=== PATIENT | male | born 1925 | race Caucasian/White ===

== ENCOUNTER → 2016-08-18 | Day surgery (SDC) | payer MEDICARE, OTHER ==
[~2016-08-18] VITALS: Ht 175.3 cm; Wt 66.8 kg
[2016-08-18] VITALS (9 sets, daily range): BP systolic 139–181; BP diastolic 37–92; PULSE 74–79; RESP 14–16; O2SAT 94–98
[~2016-08-18] MED LIST: ASPI-973 PO; ATEN25TA PO; ATOR40TA69 PO; BIMA2.5D5 RIGHT_EYE; BRIM5DRO RIGHT_EYE; BRIN10DR RIGHT_EYE; CHOL100043 PO; HYDR-3940 PO; Heparin 1,000 Unit/mL 10 mL Inj ONE; Heparin 10,000 Unit/1,000 mL NS Premix IV ONE; ISOS30TA4 PO; LON25 PO; MTH10T PO; NITR0.4T SL; OMEP20TA86 PO; SODI650T PO; TERA10CA5 PO; ZYL100 PO; fentaNYL-PF 50 mCg/mL 2 mL Inj ONE
[2016-08-18 11:11] LABS: BASOPHILS % (AUTO) 0.3 % (0-3); EOSINOPHILS % (AUTO) 0.8 % (0-5); MONOCYTES % (AUTO) 9.4 % (4-12); Mean Corpuscular Hemoglobin 35.8 pg (27.0-35.0); Mean Corpuscular Volume 110.9 fL (81-100); NEUTROPHILS % (AUTO) 58.7 % (40-74); Platelet Count 140 bil/L (150-400)
[2016-08-18 11:29] LABS: INR 0.94 ratio
--- NOTE | 2016-08-18 11:50 | NUR ---
NIKHIL ADMIT 89 YR OLD MALE ADMITTED TO [facility] FOR FISTULOGRAM TODAY AT 1100. PT STATES HE HAD A WAFFLE AND COFFEE AT 0700. DR FRAGA NOTIFIED. CONSENT IS SIGNED, IV STARTED, AND LABS SENT.
--- NOTE | 2016-08-18 16:55 | DRSVH ---
PROCEDURE: AV FISTULA INDICATIONS: ESRD COMPARISON: None. Fluoroscopy time: 2.6 minutes. Technique: 1. Antegrade access of the venous outflow the left upper extremity fistula. 2. Fistulogram performed in stations to the SVC. 3. Reflux fistulogram at the arteriovenous anastomosis. 4. Balloon angioplasty of a focal stenosis in the midportion of the venous outflow. 5. Completion fistulogram. 6. Sheath removal and hemostasis. The indications, alternatives, benefits, risks, and complications of the procedure were explained to the patient.. Informed written consent was obtained and placed in the chart. The patient was niall t to the angiography suite, and conscious sedation was administered intravenously by shelter staff, while continuous cardiorespiratory monitoring was performed. Maximum sterile barrier technique was employed per standard protocol, including hand hygiene, cap, ma sk, sterile gown and gloves, and 2% chlorhexidine. One percent lidocaine was used to anesthetize the skin over the area of interest. Using a micropuncture kit, the left upper extremity fistula was acces sed in an antegrade fashion. Fistulogram was performed in stations to the level of the SVC to the mago ropuncture sheath. An 035 wire was advanced to the level of the SVC and the micropuncture sheath was exchanged for a short 6 Yoruba sheath. Balloon angioplasty was performed for a focal high-grade steno sis in the midportion of the venous outflow with a 6 mm x 2 mm high-pressure balloon. Completion fist ulogram was performed. Reflux fistulogram at the arteriovenous anastomosis was performed. The sheath was removed, and hemostasis was achieved. FINDINGS: Initial fistulogram demonstrates a focal high-grade stenosis within the central portion of the cephalic vein. After balloon angioplasty, there is complete resolution of the stenotic lesion. N o other stenosis of the venous outflow. No stenosis at the arteriovenous anastomosis. IMPRESSION: 1. 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 Dictated by: Negin Gutiérrez M.D. on 08/18/2016 at 16:51 Approved by: eNgin Gutiérrez M.D. on 08/18/2016 at 16:53
--- NOTE | 2016-08-18 17:17 | NUR ---
NIKHIL DISCHARGE PT RECEIVED FROM [facility] AT 1440 WITH PURSE STRINGS INTACT TO LEFT FISTULA. SOME SWELLING NOTED INITIALLY AND DR FRAGA HERE TO ASSESS SITE, CLAMP WAS TIGHTENED. PURSE STRINGS DISCONTINUED AT 1645 AND BANDAID APPLIED. PT TO F/U WITH DIALYSIS TOMORROW PLANNED. DISCHARGE INSTRUCTIONS INCLUDING F/U AND POST SEDATION INSTRUCTIONS WERE REVIEWED AND PT AND SON VERBALIZED UNDERSTANDING. HE WAS DISCHARGED AT 1705 IN STABLE CONDITION WITH HIS SON, SAMRA.
== END | disposition home or self-care (01) ==
LOC: SPI 00:10
PROVIDERS: ATTEND Radiology Vascular & Interventional Radiology
DX: I87.1 Compression of vein (principal); N18.6 End stage renal disease; Z99.2 Dependence on renal dialysis; I25.10 Atherosclerotic heart disease of native coronary artery without angina pectoris; Z95.5 Presence of coronary angioplasty implant and graft; I27.2 Other secondary pulmonary hypertension; D63.1 Anemia in chronic kidney disease; Z87.891 Personal history of nicotine dependence; Z86.73 Personal history of transient ischemic attack (TIA), and cerebral infarction without residual deficits
CPT/HCPCS: 36415; 36902; 80048; 85025; 85610; 85730; 99152; 99153; C1725; C1769; C1894; J1644; J2250; J3010; Q9967